=== PATIENT | female | born 1980 | race Two or more races ===

== ENCOUNTER 2018-12-24 13:44 | Emergency (ER) | payer BC, SELFPAY ==
[~2018-12-24] VITALS: Ht 154.9 cm; Wt 74.0 kg
[2018-12-24 15:11] VITALS: BP 109/52
== END 2018-12-24 15:20 | disposition home or self-care (01) ==
LOC: ED 15:00
DX: M79.10 Myalgia, unspecified site (principal); B34.9 Viral infection, unspecified; R11.2 Nausea with vomiting, unspecified
CPT/HCPCS: 36415; 71046; 80048; 81003; 85025; 87081; 87400; 87880; 99284